=== PATIENT | male | born 1940 | race Caucasian/White ===

== ENCOUNTER 2020-10-21 05:30 | Inpatient (IN) | payer OTHER, MEDICARE ==
[2020-10-19 15:18] VITALS: BMI 21.9
[2020-10-21] MEDS ORDERED: ROCURONIUM BROMIDE 50 MG/5 ML SYRINGE ONE (14:04)
[2020-10-21] MEDS ORDERED: PROPOFOL 20 ML ONE (14:04)
[2020-10-21] MEDS ORDERED: MIDAZOLAM HCL 2 MG/2 ML SINGLE DOSE VIAL ONE (14:05)
[2020-10-21] MEDS ORDERED: LIDOCAINE HCL/PF 2% SDV 5ML VIAL ONE (14:58)
[2020-10-21] MEDS ORDERED: BACITRACIN 50,000 UNITS VIAL NR ONE (15:30)
[2020-10-21] MEDS ORDERED: ceFAZolin SODIUM 1 GM VIAL ONE (15:36)
[2020-10-21] MEDS ORDERED: EPHEDRINE SULFATE/0.9% NACL/PF 50 MG/10 ML SYRINGE NR ONE (15:37)
[2020-10-21] MEDS ORDERED: ceFAZolin 2 GRAM PREMIX BAG IVPB ONE (15:40)
[2020-10-21] MEDS ORDERED: BUPIVACAINE HCL/PF 0.5% (5MG/ML) 10 ML VIAL IJ ONE (15:55)
[2020-10-21] MEDS ORDERED: GLYCOPYRROLATE 0.2 MG/1 ML VIAL ONE (16:31)
[2020-10-21] MEDS ORDERED: NEOSTIGMINE METHYLSULFATE 0.5 MG/ML - 10 ML MDV ONE (16:31)
[2020-10-21] MEDS ORDERED: BACITRACIN 15 GM TUBE TOPICAL OINTMENT ONE (16:46)
[2020-10-21] MEDS ORDERED: ACETAMINOPHEN 325 MG TABLET (FP) PO PRN (17:23)
[2020-10-21] MEDS ORDERED: ALENDRONATE SODIUM 70 MG PO SCH (17:30)
[2020-10-21] MEDS ORDERED: oxyCODONE HCL 5 MG TABLET PO PRN (17:43)
[2020-10-21] MEDS ORDERED: ONDANSETRON 4 MG/2 ML VIAL IVPUSH PRN (17:43)
[2020-10-21] MEDS: LACTATED RINGERS SOLUTION 1,000 ML IV SCH (20:00)
[2020-10-21] MEDS ORDERED: CALCIUM ANTACID PO SCH (22:00)
[2020-10-21] MEDS: ATORVASTATIN CA 10 MG TABLET (FP) PO SCH (22:57)
[2020-10-21] MEDS: CALCIUM CARBONATE 650 MG TABLET PO SCH (22:57)
[2020-10-21] MEDS: ASCORBIC ACID 500 MG TABLET (FP) PO SCH (22:57)
[2020-10-21] MEDS: traZODone HCL 50 MG TABLET (FP) PO SCH (22:57)
[2020-10-21] MEDS: HEPARIN NA (PORCINE) 5,000 UNITS/ML 1ML VIAL SQ SCH (22:57)
[2020-10-22] MEDS ORDERED: CEFAZOLIN 1 GM/D5W 1 GM/50 ML BAG IVPB SCH (01:00)
[2020-10-22] MEDS ORDERED: ceFAZolin SODIUM 1 GM VIAL ONE ×4 (01:46→18:31)
[2020-10-22] MEDS ORDERED: DEXTROSE 5%-WATER - 50 ML IVPB ONE ×4 (01:47→18:31)
[2020-10-22] MEDS: CEFAZOLIN 1 GM in DEXTROSE 5%-WATER - 1 GM/50 ML IVPB IVPB SCH ×3 (02:20→18:39)
[2020-10-22 07:55] LABS: HEMATOCRIT 30.7 % (35.4-49); HEMOGLOBIN 10.2 GM/dL (11.7-16.9); MCH 29.8 pg (25.7-33.7); MCHC 33.4 g/dl (32.0-35.9); MEAN CELL VOLUME 89.3 fl (80-96); MEAN PLT VOLUME 7.7 fl (7.5-11.1); PLATELET COUNT 227 K/MM3 (134-434); RBC 3.44 M/mm3 (4.00-5.60); RDW 15.4 % (11.9-15.9)
[2020-10-22 08:04] LABS: POTASSIUM 4.5 mmol/L (3.5-5.1)
[2020-10-22 08:12] LABS: CALCIUM 8.5 mg/dL (8.5-10.1)
[2020-10-22 08:13] LABS: BLOOD UREA NITROGEN 32.8 mg/dL (7-18)
[2020-10-22 08:16] LABS: CREATININE 1.5 mg/dL (0.55-1.3)
[2020-10-22] MEDS: FERROUS SO4 325 MG TABLET (FP) PO SCH (09:06)
[2020-10-22] MEDS ORDERED: PT OWN MED DRAWER 7, Y5N ONE (09:45)
[2020-10-22] MEDS: HEPARIN NA (PORCINE) 5,000 UNITS/ML 1ML VIAL SQ SCH ×2 (10:39→21:22)
[2020-10-22] MEDS: GABAPENTIN 400 MG CAPSULE PO SCH (10:40)
[2020-10-22] MEDS: ASCORBIC ACID 500 MG TABLET (FP) PO SCH ×2 (10:41→21:21)
[2020-10-22] MEDS: amLODIPine BESYLATE 10 MG TABLET (FP) PO SCH (10:41)
[2020-10-22] MEDS: CALCIUM CARBONATE 650 MG TABLET PO SCH ×2 (10:41→22:02)
[2020-10-22] MEDS: SERTRALINE HCL 25 MG TABLET (FP) PO SCH (10:42)
[2020-10-22] MEDS: CYANOCOBALAMIN 1,000 MCG TABLET (FP) PO SCH (10:43)
[2020-10-22] MEDS: CHOLECALCIFEROL (VIT D3) 1,000 UNIT (25 MCG) TABLET PO SCH (10:44)
[2020-10-22] MEDS: LACTATED RINGERS SOLUTION 1,000 ML IV SCH (18:40)
[2020-10-22] MEDS: OCUVITE WITH LUTEIN PO SCH (19:27)
[2020-10-22] MEDS: ATORVASTATIN CA 10 MG TABLET (FP) PO SCH (21:21)
[2020-10-22] MEDS: traZODone HCL 50 MG TABLET (FP) PO SCH (21:21)
[2020-10-22] MEDS ORDERED: DOCUSATE SODIUM 100 MG CAPSULE (FP) PO ONE (21:36)
[2020-10-22] MEDS ORDERED: POLYETHYLENE GLYCOL 3350 119 GM BTL PO ONE (21:37)
[2020-10-23] MEDS: LACTATED RINGERS SOLUTION 1,000 ML IV SCH ×3 (01:59→22:11)
[2020-10-23 08:50] LABS: BASO % 0.6 % (0-2.0); EOS % 2.3 % (0-4.5); HEMATOCRIT 31.9 % (35.4-49); HEMOGLOBIN 10.7 GM/dL (11.7-16.9); LYMPH % 22.5 % (8-40); MCH 29.7 pg (25.7-33.7); MCHC 33.6 g/dl (32.0-35.9); MEAN CELL VOLUME 88.4 fl (80-96); MEAN PLT VOLUME 7.8 fl (7.5-11.1); MONO % 7.1 % (3.8-10.2); NEUT % 67.5 % (42.8-82.8); PLATELET COUNT 207 K/MM3 (134-434); RDW 15.1 % (11.9-15.9); WHITE BLOOD COUNT 5.3 K/mm3 (4.0-10.0)
[2020-10-23 09:19] LABS: CHLORIDE 107 mmol/L (98-107); POTASSIUM 4.2 mmol/L (3.5-5.1); SODIUM 143 mmol/L (136-145)
[2020-10-23 09:39] LABS: BILIRUBIN,TOTAL 0.4 mg/dL (0.2-1); TOT PROT 6.5 g/dl (6.4-8.2)
[2020-10-23] MEDS: SERTRALINE HCL 25 MG TABLET (FP) PO SCH (09:39)
[2020-10-23 09:40] LABS: ALK PHOS 78 U/L (45-117)
[2020-10-23] MEDS: CYANOCOBALAMIN 1,000 MCG TABLET (FP) PO SCH (09:40)
[2020-10-23] MEDS: amLODIPine BESYLATE 10 MG TABLET (FP) PO SCH (09:40)
[2020-10-23] MEDS: CHOLECALCIFEROL (VIT D3) 1,000 UNIT (25 MCG) TABLET PO SCH (09:41)
[2020-10-23] MEDS: GABAPENTIN 400 MG CAPSULE PO SCH (09:41)
[2020-10-23] MEDS: FERROUS SO4 325 MG TABLET (FP) PO SCH (09:41)
[2020-10-23 09:42] LABS: SGOT/AST 12 U/L (15-37)
[2020-10-23] MEDS: HEPARIN NA (PORCINE) 5,000 UNITS/ML 1ML VIAL SQ SCH ×2 (09:42→22:18)
[2020-10-23] MEDS: CALCIUM CARBONATE 650 MG TABLET PO SCH ×2 (09:42→22:19)
[2020-10-23 09:43] LABS: ALBUMIN 2.4 g/dl (3.4-5.0); BLOOD UREA NITROGEN 25.4 mg/dL (7-18); CREATININE 1.3 mg/dL (0.55-1.3)
[2020-10-23 09:44] LABS: GLUCOSE,RANDOM 79 mg/dL (74-106)
[2020-10-23] MEDS: ASCORBIC ACID 500 MG TABLET (FP) PO SCH ×2 (09:47→22:18)
[2020-10-23 12:31] LABS: ANION GAP 7 MMOL/L (8-16); CO2 29 mmol/L (21-32)
[2020-10-23 12:43] LABS: SGPT/ALT < 6 U/L (13-61)
[2020-10-23 19:03] LABS: EPI CELLS 24 /uL (0-25.1); HYALINE CASTS 0 /uL (0-3.1); PH,URINE 7.5 (5.0-8.0); URINE APPEARANCE CLEAR; URINE BACTERIA 27 /uL (0-1359); URINE BILIRUBIN NEGATIVE (NEGATIVE); URINE COLOR YELLOW; URINE GLUCOSE (UA) NEGATIVE (NEGATIVE); URINE KETONE NEGATIVE (NEGATIVE); URINE LEUK ESTERASE 3+ (NEGATIVE); URINE NITRITE NEGATIVE (NEGATIVE); URINE PROTEIN TRACE (NEGATIVE); URINE RBC 23 /uL (0-23.9); URINE UROBILINOGEN 0.2 mg/dL (0.2-1.0); URINE WBC 60 /uL (0-25.8)
[2020-10-23] MEDS: ATORVASTATIN CA 10 MG TABLET (FP) PO SCH (22:18)
[2020-10-23] MEDS: traZODone HCL 50 MG TABLET (FP) PO SCH (22:19)
[2020-10-24] MEDS ORDERED: PT OWN MED DRAWER 7, Y5N ONE (09:30)
[2020-10-24] MEDS: SERTRALINE HCL 25 MG TABLET (FP) PO SCH (09:49)
[2020-10-24] MEDS: CALCIUM CARBONATE 650 MG TABLET PO SCH ×2 (09:49→21:23)
[2020-10-24] MEDS: FERROUS SO4 325 MG TABLET (FP) PO SCH (09:49)
[2020-10-24] MEDS: ASCORBIC ACID 500 MG TABLET (FP) PO SCH ×2 (09:49→21:23)
[2020-10-24] MEDS: CYANOCOBALAMIN 1,000 MCG TABLET (FP) PO SCH (09:49)
[2020-10-24] MEDS: GABAPENTIN 400 MG CAPSULE PO SCH (09:49)
[2020-10-24] MEDS: CHOLECALCIFEROL (VIT D3) 1,000 UNIT (25 MCG) TABLET PO SCH (09:50)
[2020-10-24] MEDS: amLODIPine BESYLATE 10 MG TABLET (FP) PO SCH (09:50)
[2020-10-24] MEDS: HEPARIN NA (PORCINE) 5,000 UNITS/ML 1ML VIAL SQ SCH ×2 (09:51→21:23)
[2020-10-24] MEDS ORDERED: GLYCERIN 1 RECTAL SUPPOSITORY, ADULT RC ONE (10:57)
[2020-10-24 12:08] LABS: BASO % 0.6 % (0-2.0); EOS % 2.6 % (0-4.5); HEMATOCRIT 32.7 % (35.4-49); LYMPH % 18.9 % (8-40); MCH 29.6 pg (25.7-33.7); MCHC 33.5 g/dl (32.0-35.9); MEAN CELL VOLUME 88.4 fl (80-96); MEAN PLT VOLUME 7.3 fl (7.5-11.1); MONO % 7.3 % (3.8-10.2); NEUT % 70.6 % (42.8-82.8); PLATELET COUNT 221 K/MM3 (134-434); WHITE BLOOD COUNT 5.4 K/mm3 (4.0-10.0)
[2020-10-24 12:25] LABS: CHLORIDE 102 mmol/L (98-107); POTASSIUM 4.5 mmol/L (3.5-5.1); SODIUM 138 mmol/L (136-145)
[2020-10-24 12:27] LABS: CALCIUM 8.5 mg/dL (8.5-10.1)
[2020-10-24 12:28] LABS: ALBUMIN 2.4 g/dl (3.4-5.0); ANION GAP 5 MMOL/L (8-16); BLOOD UREA NITROGEN 25.6 mg/dL (7-18); CO2 30 mmol/L (21-32); GLUCOSE,RANDOM 100 mg/dL (74-106); MAGNESIUM 2.1 mg/dL (1.8-2.4)
[2020-10-24 12:31] LABS: CREATININE 1.4 mg/dL (0.55-1.3); PHOSPHOROUS 3.6 mg/dL (2.5-4.9); SGOT/AST 13 U/L (15-37); SGPT/ALT < 6 U/L (13-61)
[2020-10-24 12:32] LABS: BILIRUBIN,TOTAL 0.3 mg/dL (0.2-1); TOT PROT 6.8 g/dl (6.4-8.2)
[2020-10-24 12:34] LABS: ALK PHOS 76 U/L (45-117)
[2020-10-24] MEDS: traZODone HCL 50 MG TABLET (FP) PO SCH (21:23)
[2020-10-24] MEDS: ATORVASTATIN CA 10 MG TABLET (FP) PO SCH (21:23)
[2020-10-24] MEDS: DOCUSATE SODIUM 100 MG CAPSULE (FP) PO SCH (21:24)
[2020-10-25 09:04] LABS: BASO % 0.6 % (0-2.0); EOS % 3.5 % (0-4.5); HEMATOCRIT 30.5 % (35.4-49); HEMOGLOBIN 10.3 GM/dL (11.7-16.9); LYMPH % 24.6 % (8-40); MCH 29.9 pg (25.7-33.7); MCHC 33.7 g/dl (32.0-35.9); MEAN CELL VOLUME 88.6 fl (80-96); MEAN PLT VOLUME 7.9 fl (7.5-11.1); NEUT % 64.3 % (42.8-82.8); PLATELET COUNT 223 K/MM3 (134-434); RBC 3.44 M/mm3 (4.00-5.60); WHITE BLOOD COUNT 5.7 K/mm3 (4.0-10.0)
[2020-10-25 09:23] LABS: CHLORIDE 104 mmol/L (98-107); POTASSIUM 4.5 mmol/L (3.5-5.1); SODIUM 140 mmol/L (136-145)
[2020-10-25 09:27] LABS: CALCIUM 8.6 mg/dL (8.5-10.1)
[2020-10-25 09:28] LABS: ALBUMIN 2.4 g/dl (3.4-5.0); ANION GAP 7 MMOL/L (8-16); BLOOD UREA NITROGEN 32.5 mg/dL (7-18); CO2 30 mmol/L (21-32)
[2020-10-25 09:29] LABS: GLUCOSE,RANDOM 79 mg/dL (74-106); MAGNESIUM 2.2 mg/dL (1.8-2.4)
[2020-10-25 09:31] LABS: CREATININE 1.5 mg/dL (0.55-1.3); PHOSPHOROUS 3.5 mg/dL (2.5-4.9); SGOT/AST 14 U/L (15-37)
[2020-10-25 09:33] LABS: BILIRUBIN,TOTAL 0.4 mg/dL (0.2-1); TOT PROT 6.8 g/dl (6.4-8.2)
[2020-10-25 09:34] LABS: ALK PHOS 75 U/L (45-117)
[2020-10-25 09:36] LABS: SGPT/ALT < 6 U/L (13-61)
[2020-10-25] MEDS ORDERED: PT OWN MED DRAWER 7, Y5N ONE (10:36)
[2020-10-25] MEDS: SERTRALINE HCL 25 MG TABLET (FP) PO SCH (10:41)
[2020-10-25] MEDS: FERROUS SO4 325 MG TABLET (FP) PO SCH (10:42)
[2020-10-25] MEDS: CYANOCOBALAMIN 1,000 MCG TABLET (FP) PO SCH (10:42)
[2020-10-25] MEDS: ASCORBIC ACID 500 MG TABLET (FP) PO SCH ×2 (10:42→21:36)
[2020-10-25] MEDS: amLODIPine BESYLATE 10 MG TABLET (FP) PO SCH (10:42)
[2020-10-25] MEDS: CHOLECALCIFEROL (VIT D3) 1,000 UNIT (25 MCG) TABLET PO SCH (10:42)
[2020-10-25] MEDS: GABAPENTIN 400 MG CAPSULE PO SCH (10:42)
[2020-10-25] MEDS: CALCIUM CARBONATE 650 MG TABLET PO SCH ×2 (10:43→21:41)
[2020-10-25] MEDS: HEPARIN NA (PORCINE) 5,000 UNITS/ML 1ML VIAL SQ SCH ×2 (10:44→21:37)
[2020-10-25] MEDS: traZODone HCL 50 MG TABLET (FP) PO SCH (21:35)
[2020-10-25] MEDS: ATORVASTATIN CA 10 MG TABLET (FP) PO SCH (21:36)
[2020-10-25] MEDS: DOCUSATE SODIUM 100 MG CAPSULE (FP) PO SCH (21:36)
[2020-10-26] MEDS: CALCIUM CARBONATE 650 MG TABLET PO SCH (09:35)
[2020-10-26] MEDS: ASCORBIC ACID 500 MG TABLET (FP) PO SCH (09:35)
[2020-10-26] MEDS: CHOLECALCIFEROL (VIT D3) 1,000 UNIT (25 MCG) TABLET PO SCH (09:35)
[2020-10-26] MEDS: SERTRALINE HCL 25 MG TABLET (FP) PO SCH (09:35)
[2020-10-26] MEDS: amLODIPine BESYLATE 10 MG TABLET (FP) PO SCH (09:36)
[2020-10-26] MEDS: GABAPENTIN 400 MG CAPSULE PO SCH (09:36)
[2020-10-26] MEDS: HEPARIN NA (PORCINE) 5,000 UNITS/ML 1ML VIAL SQ SCH (09:36)
[2020-10-26] MEDS: FERROUS SO4 325 MG TABLET (FP) PO SCH (09:36)
[2020-10-26] MEDS: CYANOCOBALAMIN 1,000 MCG TABLET (FP) PO SCH (09:36)
[2020-10-26 09:39] VITALS: TEMP 98
[2020-10-26 13:27] VITALS: BP 138/65; PULSE 61
== END 2020-10-26 14:30 | DRG 574 ==
LOC: JASU-SURG 05:30 → SUATTDRO 05:30 → J2C 17:24 → JASU-SURG 17:25 → J8W 20:18
PROVIDERS: ADMIT Plastic Surgery; ATTEND Internal Medicine
PROC: 0JX90ZC Transfer Buttock Subcutaneous Tissue and Fascia with Skin, Subcutaneous Tissue and Fascia, Open Approach (ICD-10-PCS; 2020-10-21)
PROC: 0QB20ZX Excision of Right Pelvic Bone, Open Approach, Diagnostic (ICD-10-PCS; 2020-10-21)
PROC: 0KBN0ZZ Excision of Right Hip Muscle, Open Approach (ICD-10-PCS; principal; 2020-10-21 14:00)
DX: L89.154 Pressure ulcer of sacral region, stage 4 (principal); N13.30 Unspecified hydronephrosis; N17.9 Acute kidney failure, unspecified; G35 Multiple sclerosis; E78.5 Hyperlipidemia, unspecified; I12.9 Hypertensive chronic kidney disease with stage 1 through stage 4 chronic kidney disease, or unspecified chronic kidney disease; N18.9 Chronic kidney disease, unspecified; D64.9 Anemia, unspecified; Z93.6 Other artificial openings of urinary tract status
CPT/HCPCS: 36415; 76775-TC; 80048; 80053; 81003; 83735; 84100; 85025; 85027; 88304-TC; 88305-TC; 88311-TC; 94760; C9803; J1644; U0003; U0005

== ENCOUNTER 2022-09-26 16:34 | Inpatient (IN) | payer OTHER, MEDICARE ==
[2022-09-26 18:27] LABS: BASO % 0.3 % (0-2.0); EOS % 1.4 % (0-4.5); HEMATOCRIT 34.1 % (35.4-49); HEMOGLOBIN 10.9 GM/dL (11.7-16.9); LYMPH % 12.4 % (8-40); MCH 26.2 pg (25.7-33.7); MCHC 32.1 g/dl (32.0-35.9); MEAN CELL VOLUME 81.6 fl (80-96); MEAN PLT VOLUME 6.5 fl (7.5-11.1); MONO % 6.8 % (3.8-10.2); NEUT % 79.1 % (42.8-82.8); PLATELET COUNT 388 10^3/uL (134-434); RBC 4.18 M/mm3 (4.00-5.60); RDW 15.6 % (11.9-15.9); WHITE BLOOD COUNT 10.1 K/mm3 (4.0-10.0)
[2022-09-26 18:33] LABS: INR 1.18 (0.83-1.09); PROTHROMBIN TIME (PATIENT) 13.7 SEC (9.7-13.0)
[2022-09-26 19:13] LABS: CALCIUM 8.5 mg/dL (8.5-10.1)
[2022-09-26 19:14] LABS: ALBUMIN 2.1 g/dl (3.4-5.0); BLOOD UREA NITROGEN 28.4 mg/dL (7-18)
[2022-09-26 19:19] LABS: BILIRUBIN,TOTAL 0.3 mg/dL (0.2-1); TOT PROT 7.3 g/dl (6.4-8.2)
[2022-09-26] MEDS ORDERED: VANCOMYCIN 1 GM in D5W (PRE-DOCKED) 1,000 MG/250 ML IVPB ONE (19:51)
[2022-09-26] MEDS ORDERED: PIPERACILLIN/TAZOB 4.5 GM 4.5 GM in DEXTROSE 5%-WATER 100 ML IVPB ONE (19:51)
[2022-09-26] MEDS ORDERED: PIPERACILLIN/TAZOB 4.5 GM 4.5 GM/100 ML BAG IVPB ONE (19:53)
[2022-09-26 20:37] LABS: EPI CELLS 1 /uL (0-25.1); HYALINE CASTS 2 /uL (0-3.1); URINE APPEARANCE CLOUDY; URINE BACTERIA 8451 /uL (0-1359); URINE BILIRUBIN NEGATIVE (NEGATIVE); URINE COLOR YELLOW; URINE GLUCOSE (UA) NEGATIVE (NEGATIVE); URINE KETONE NEGATIVE (NEGATIVE); URINE LEUK ESTERASE 3+ (NEGATIVE); URINE NITRITE POSITIVE (NEGATIVE); URINE PROTEIN 1+ (NEGATIVE); URINE RBC 40 /uL (0-23.9); URINE UROBILINOGEN 0.2 mg/dL (0.2-1.0); URINE WBC 679 /uL (0-25.8)
[2022-09-26] MEDS ORDERED: CALCIUM CARBONATE 650 MG TABLET PO SCH (22:00)
[2022-09-26] MEDS: SODIUM CHLORIDE 1,000 ML IV SCH (22:37)
[2022-09-26] MEDS: traZODone HCL 50 MG TABLET (FP) PO SCH (22:37)
[2022-09-26] MEDS: GABAPENTIN 300 MG CAPSULE PO SCH (22:37)
[2022-09-26] MEDS: ATORVASTATIN CA 10 MG TABLET (FP) PO SCH (22:38)
[2022-09-26] MEDS: SENNOSIDES 8.6MG TABLET (FP) PO SCH (22:38)
[2022-09-26] MEDS ORDERED: VANCOMYCIN 1 GM/200 ML PREMIX BAG (RESTRICTED TO ID ONLY) IVPB ONE (23:15)
[2022-09-26 23:56] VITALS: BMI 19.6
[2022-09-26] MEDS: CALCIUM CARBONATE 650 MG TABLET PO SCH (23:56)
[2022-09-27] MEDS: PIPERACILLIN/TAZOB 3.375 GM 3.375 GM in DEXTROSE 5%-WATER - 50 ML IVPB SCH ×2 (01:27→09:51)
[2022-09-27] MEDS: SERTRALINE HCL 25 MG TABLET (FP) PO SCH (09:50)
[2022-09-27] MEDS ORDERED: VANCOMYCIN 1 GM/200 ML PREMIX BAG (RESTRICTED TO ID ONLY) IVPB SCH (10:00)
[2022-09-27] MEDS ORDERED: amLODIPine BESYLATE 5 MG TABLET (FP) PO SCH (10:00)
[2022-09-27] MEDS ORDERED: CYANOCOBALAMIN 1,000 MCG TABLET (FP) PO SCH (10:00)
[2022-09-27] MEDS ORDERED: VANCOMYCIN 1 GM in D5W (PRE-DOCKED) 1,000 MG/250 ML IVPB SCH (10:00)
[2022-09-27] MEDS: CALCIUM CARBONATE 650 MG TABLET PO SCH ×2 (10:03→22:30)
[2022-09-27] MEDS: POLYETHYLENE GLYCOL (HEALTHYLAX) 3350 17 GM PACKET PO SCH (10:03)
[2022-09-27] MEDS: GABAPENTIN 300 MG CAPSULE PO SCH ×2 (10:03→22:30)
[2022-09-27] MEDS: ASPIRIN 81 MG CHEWABLE TABLETS PO SCH (10:03)
[2022-09-27] MEDS: FERROUS SO4 325 MG TABLET (FP) PO SCH (10:03)
[2022-09-27] MEDS: FOLIC ACID 1 MG TABLET (FP) PO SCH (10:03)
[2022-09-27] MEDS: amLODIPine BESYLATE 5 MG TABLET (FP) PO SCH (10:04)
[2022-09-27] MEDS: CHOLECALCIFEROL (VIT D3) 1,000 UNIT (25 MCG) TABLET PO SCH (10:04)
[2022-09-27] MEDS: CYANOCOBALAMIN 1,000 MCG TABLET (FP) PO SCH (10:04)
[2022-09-27] MEDS: MULTIVITAMINS (DAILY MVI) TABLET (FP) PO SCH (10:04)
[2022-09-27] MEDS: ZINC SULFATE 220 MG CAPSULE (FP) PO SCH (10:04)
[2022-09-27 10:18] LABS: BASO % 0.6 % (0-2.0); EOS % 1.8 % (0-4.5); HEMATOCRIT 29.3 % (35.4-49); HEMOGLOBIN 9.4 GM/dL (11.7-16.9); LYMPH % 12.7 % (8-40); MCH 26.7 pg (25.7-33.7); MCHC 32.1 g/dl (32.0-35.9); MEAN CELL VOLUME 83.2 fl (80-96); MEAN PLT VOLUME 6.4 fl (7.5-11.1); MONO % 5.2 % (3.8-10.2); NEUT % 79.7 % (42.8-82.8); PLATELET COUNT 354 10^3/uL (134-434); RBC 3.52 M/mm3 (4.00-5.60); WHITE BLOOD COUNT 6.8 K/mm3 (4.0-10.0)
[2022-09-27 10:22] LABS: INR 1.31 (0.83-1.09); PROTHROMBIN TIME (PATIENT) 15.2 SEC (9.7-13.0)
[2022-09-27 10:45] LABS: CALCIUM 7.7 mg/dL (8.5-10.1)
[2022-09-27 10:46] LABS: ALBUMIN 1.7 g/dl (3.4-5.0); BLOOD UREA NITROGEN 24.4 mg/dL (7-18); MAGNESIUM 2.2 mg/dL (1.8-2.4)
[2022-09-27 10:49] LABS: PHOSPHOROUS 3.3 mg/dL (2.5-4.9)
[2022-09-27 10:50] LABS: BILIRUBIN,TOTAL 0.3 mg/dL (0.2-1); TOT PROT 6.1 g/dl (6.4-8.2)
[2022-09-27] MEDS: ENOXAPARIN NA (PORCINE) 40 MG/0.4 ML DISP.SYRIN SQ SCH (18:49)
[2022-09-27] MEDS: PIPERACILLIN/TAZOB 4.5 GM 4.5 GM in DEXTROSE 5%-WATER 100 ML IVPB SCH (18:50)
[2022-09-27] MEDS: VITAMIN A 10,000 UNITS (3000 MCG) CAPSULE PO SCH (18:51)
[2022-09-27] MEDS: SODIUM CHLORIDE 1,000 ML IV SCH ×2 (18:51→23:16)
[2022-09-27] MEDS: AMINO ACIDS/PROTEIN HYDROLYS 30 ML LIQUID.PKT PO SCH (18:51)
[2022-09-27] MEDS ORDERED: ASCORBIC ACID 500 MG TABLET (FP) PO SCH (22:15)
[2022-09-27] MEDS: traZODone HCL 50 MG TABLET (FP) PO SCH (22:30)
[2022-09-27] MEDS: ATORVASTATIN CA 10 MG TABLET (FP) PO SCH (22:30)
[2022-09-27] MEDS: SENNOSIDES 8.6MG TABLET (FP) PO SCH (22:30)
[2022-09-27] MEDS: ASCORBIC ACID 500 MG TABLET (FP) PO SCH ×2 (23:19→23:21)
[2022-09-28] MEDS ORDERED: PIPERACILLIN/TAZOB 3.375 GM 3.375 GM in DEXTROSE 5%-WATER - 50 ML IVPB SCH (02:00)
[2022-09-28] MEDS: PIPERACILLIN/TAZOB 4.5 GM 4.5 GM in DEXTROSE 5%-WATER 100 ML IVPB SCH ×3 (02:06→17:19)
[2022-09-28] MEDS: SODIUM CHLORIDE 1,000 ML IV SCH (07:02)
[2022-09-28] MEDS: CALCIUM CARBONATE 650 MG TABLET PO SCH ×2 (09:32→21:53)
[2022-09-28] MEDS: ASPIRIN 81 MG CHEWABLE TABLETS PO SCH (09:32)
[2022-09-28] MEDS: CHOLECALCIFEROL (VIT D3) 1,000 UNIT (25 MCG) TABLET PO SCH (09:32)
[2022-09-28] MEDS: MULTIVITAMINS (DAILY MVI) TABLET (FP) PO SCH (09:32)
[2022-09-28] MEDS: ZINC SULFATE 220 MG CAPSULE (FP) PO SCH (09:32)
[2022-09-28] MEDS: AMINO ACIDS/PROTEIN HYDROLYS 30 ML LIQUID.PKT PO SCH ×3 (09:32→17:41)
[2022-09-28] MEDS: VITAMIN A 10,000 UNITS (3000 MCG) CAPSULE PO SCH (09:32)
[2022-09-28] MEDS: SERTRALINE HCL 25 MG TABLET (FP) PO SCH (09:32)
[2022-09-28] MEDS: CYANOCOBALAMIN 1,000 MCG TABLET (FP) PO SCH (09:32)
[2022-09-28] MEDS: ASCORBIC ACID 500 MG TABLET (FP) PO SCH ×2 (09:32→21:52)
[2022-09-28] MEDS: FERROUS SO4 325 MG TABLET (FP) PO SCH (09:33)
[2022-09-28] MEDS: GABAPENTIN 300 MG CAPSULE PO SCH ×2 (09:33→21:52)
[2022-09-28] MEDS: FOLIC ACID 1 MG TABLET (FP) PO SCH (09:33)
[2022-09-28] MEDS: amLODIPine BESYLATE 5 MG TABLET (FP) PO SCH (09:33)
[2022-09-28] MEDS: POLYETHYLENE GLYCOL (HEALTHYLAX) 3350 17 GM PACKET PO SCH ×2 (09:33→09:48)
[2022-09-28] MEDS: ENOXAPARIN NA (PORCINE) 40 MG/0.4 ML DISP.SYRIN SQ SCH (09:34)
[2022-09-28] MEDS ORDERED: DEXMEDETOMIDINE HCL 200 MCG/2 ML IVPB ONE (13:32)
[2022-09-28] MEDS ORDERED: PROPOFOL 20 ML ONE (13:54)
[2022-09-28] MEDS ORDERED: SODIUM CHLORIDE 1,000 ML IV SCH (15:34)
[2022-09-28] MEDS: SENNOSIDES 8.6MG TABLET (FP) PO SCH (21:52)
[2022-09-28] MEDS: traZODone HCL 50 MG TABLET (FP) PO SCH (21:53)
[2022-09-28] MEDS: ATORVASTATIN CA 10 MG TABLET (FP) PO SCH (21:53)
[2022-09-29] MEDS: PIPERACILLIN/TAZOB 4.5 GM 4.5 GM in DEXTROSE 5%-WATER 100 ML IVPB SCH ×4 (01:21→18:20)
[2022-09-29] MEDS: POLYETHYLENE GLYCOL (HEALTHYLAX) 3350 17 GM PACKET PO SCH (10:07)
[2022-09-29] MEDS: AMINO ACIDS/PROTEIN HYDROLYS 30 ML LIQUID.PKT PO SCH ×4 (10:07→18:21)
[2022-09-29] MEDS: ZINC SULFATE 220 MG CAPSULE (FP) PO SCH (10:08)
[2022-09-29] MEDS: CYANOCOBALAMIN 1,000 MCG TABLET (FP) PO SCH (10:08)
[2022-09-29] MEDS: GABAPENTIN 300 MG CAPSULE PO SCH ×2 (10:08→21:37)
[2022-09-29] MEDS: ASCORBIC ACID 500 MG TABLET (FP) PO SCH ×2 (10:08→21:37)
[2022-09-29] MEDS: FERROUS SO4 325 MG TABLET (FP) PO SCH (10:08)
[2022-09-29] MEDS: CALCIUM CARBONATE 650 MG TABLET PO SCH ×2 (10:09→21:37)
[2022-09-29] MEDS: MULTIVITAMINS (DAILY MVI) TABLET (FP) PO SCH (10:09)
[2022-09-29] MEDS: SERTRALINE HCL 25 MG TABLET (FP) PO SCH (10:09)
[2022-09-29] MEDS: CHOLECALCIFEROL (VIT D3) 1,000 UNIT (25 MCG) TABLET PO SCH (10:09)
[2022-09-29] MEDS: FOLIC ACID 1 MG TABLET (FP) PO SCH (10:09)
[2022-09-29] MEDS: VITAMIN A 10,000 UNITS (3000 MCG) CAPSULE PO SCH (10:10)
[2022-09-29] MEDS: amLODIPine BESYLATE 5 MG TABLET (FP) PO SCH (10:20)
[2022-09-29] MEDS: traZODone HCL 50 MG TABLET (FP) PO SCH (21:37)
[2022-09-29] MEDS: ATORVASTATIN CA 10 MG TABLET (FP) PO SCH (21:38)
[2022-09-29] MEDS: SENNOSIDES 8.6MG TABLET (FP) PO SCH (21:38)
[2022-09-30] MEDS: PIPERACILLIN/TAZOB 4.5 GM 4.5 GM in DEXTROSE 5%-WATER 100 ML IVPB SCH ×3 (01:18→18:08)
[2022-09-30 08:48] LABS: HEMATOCRIT 25.9 % (35.4-49); HEMOGLOBIN 8.4 GM/dL (11.7-16.9); MCH 26.6 pg (25.7-33.7); MCHC 32.4 g/dl (32.0-35.9); MEAN CELL VOLUME 82.2 fl (80-96); MEAN PLT VOLUME 6.5 fl (7.5-11.1); PLATELET COUNT 283 10^3/uL (134-434); RBC 3.15 M/mm3 (4.00-5.60); RDW 15.9 % (11.9-15.9); WHITE BLOOD COUNT 6.6 K/mm3 (4.0-10.0)
[2022-09-30 09:11] LABS: BLOOD UREA NITROGEN 28.3 mg/dL (7-18); CALCIUM 8.4 mg/dL (8.5-10.1); MAGNESIUM 1.9 mg/dL (1.8-2.4)
[2022-09-30 09:12] LABS: ALBUMIN 1.6 g/dl (3.4-5.0)
[2022-09-30 09:14] LABS: PHOSPHOROUS 4.1 mg/dL (2.5-4.9)
[2022-09-30 09:16] LABS: BILIRUBIN,TOTAL 0.4 mg/dL (0.2-1); TOT PROT 5.6 g/dl (6.4-8.2)
[2022-09-30] MEDS: GABAPENTIN 300 MG CAPSULE PO SCH ×2 (09:37→22:07)
[2022-09-30] MEDS: CHOLECALCIFEROL (VIT D3) 1,000 UNIT (25 MCG) TABLET PO SCH (09:37)
[2022-09-30] MEDS: CYANOCOBALAMIN 1,000 MCG TABLET (FP) PO SCH (09:37)
[2022-09-30] MEDS: MULTIVITAMINS (DAILY MVI) TABLET (FP) PO SCH (09:37)
[2022-09-30] MEDS: ZINC SULFATE 220 MG CAPSULE (FP) PO SCH (09:37)
[2022-09-30] MEDS: ASCORBIC ACID 500 MG TABLET (FP) PO SCH ×2 (09:37→22:07)
[2022-09-30] MEDS: SERTRALINE HCL 25 MG TABLET (FP) PO SCH (09:37)
[2022-09-30] MEDS: FOLIC ACID 1 MG TABLET (FP) PO SCH (09:37)
[2022-09-30] MEDS: POLYETHYLENE GLYCOL (HEALTHYLAX) 3350 17 GM PACKET PO SCH (09:37)
[2022-09-30] MEDS: AMINO ACIDS/PROTEIN HYDROLYS 30 ML LIQUID.PKT PO SCH ×3 (09:37→19:07)
[2022-09-30] MEDS: CALCIUM CARBONATE 650 MG TABLET PO SCH ×2 (09:37→22:07)
[2022-09-30] MEDS: amLODIPine BESYLATE 5 MG TABLET (FP) PO SCH (09:37)
[2022-09-30] MEDS: FERROUS SO4 325 MG TABLET (FP) PO SCH (09:37)
[2022-09-30] MEDS: VITAMIN A 10,000 UNITS (3000 MCG) CAPSULE PO SCH (10:08)
[2022-09-30] MEDS: SENNOSIDES 8.6MG TABLET (FP) PO SCH (22:07)
[2022-09-30] MEDS: ATORVASTATIN CA 10 MG TABLET (FP) PO SCH (22:07)
[2022-09-30] MEDS: traZODone HCL 50 MG TABLET (FP) PO SCH (22:08)
[2022-10-01] MEDS: PIPERACILLIN/TAZOB 4.5 GM 4.5 GM in DEXTROSE 5%-WATER 100 ML IVPB SCH ×3 (02:04→18:21)
[2022-10-01] MEDS: ZINC SULFATE 220 MG CAPSULE (FP) PO SCH (09:16)
[2022-10-01] MEDS: SERTRALINE HCL 25 MG TABLET (FP) PO SCH (09:16)
[2022-10-01] MEDS: ASCORBIC ACID 500 MG TABLET (FP) PO SCH ×2 (09:16→22:13)
[2022-10-01] MEDS: CYANOCOBALAMIN 1,000 MCG TABLET (FP) PO SCH (09:16)
[2022-10-01] MEDS: FERROUS SO4 325 MG TABLET (FP) PO SCH (09:16)
[2022-10-01] MEDS: amLODIPine BESYLATE 5 MG TABLET (FP) PO SCH (09:16)
[2022-10-01] MEDS: CHOLECALCIFEROL (VIT D3) 1,000 UNIT (25 MCG) TABLET PO SCH (09:16)
[2022-10-01] MEDS: MULTIVITAMINS (DAILY MVI) TABLET (FP) PO SCH (09:16)
[2022-10-01] MEDS: GABAPENTIN 300 MG CAPSULE PO SCH ×2 (09:16→22:14)
[2022-10-01] MEDS: CALCIUM CARBONATE 650 MG TABLET PO SCH ×2 (09:17→22:18)
[2022-10-01] MEDS: VITAMIN A 10,000 UNITS (3000 MCG) CAPSULE PO SCH (09:17)
[2022-10-01] MEDS: AMINO ACIDS/PROTEIN HYDROLYS 30 ML LIQUID.PKT PO SCH ×3 (09:18→17:34)
[2022-10-01] MEDS: POLYETHYLENE GLYCOL (HEALTHYLAX) 3350 17 GM PACKET PO SCH (09:19)
[2022-10-01 09:49] LABS: BASO % 0.6 % (0-2.0); EOS % 4.2 % (0-4.5); HEMATOCRIT 29.3 % (35.4-49); HEMOGLOBIN 9.5 GM/dL (11.7-16.9); LYMPH % 18.7 % (8-40); MCH 26.6 pg (25.7-33.7); MCHC 32.6 g/dl (32.0-35.9); MEAN CELL VOLUME 81.6 fl (80-96); MEAN PLT VOLUME 6.7 fl (7.5-11.1); MONO % 5.9 % (3.8-10.2); NEUT % 70.6 % (42.8-82.8); PLATELET COUNT 329 10^3/uL (134-434); RBC 3.59 M/mm3 (4.00-5.60); RDW 16.3 % (11.9-15.9); WHITE BLOOD COUNT 7.3 K/mm3 (4.0-10.0)
[2022-10-01 09:52] LABS: CALCIUM 8.8 mg/dL (8.5-10.1)
[2022-10-01 09:55] LABS: CREATININE 1.1 mg/dL (0.55-1.3)
[2022-10-01] MEDS: FOLIC ACID 1 MG TABLET (FP) PO SCH (10:17)
[2022-10-01] MEDS: traZODone HCL 50 MG TABLET (FP) PO SCH (22:14)
[2022-10-01] MEDS: ATORVASTATIN CA 10 MG TABLET (FP) PO SCH (22:15)
[2022-10-01] MEDS: SENNOSIDES 8.6MG TABLET (FP) PO SCH (22:15)
[2022-10-02] MEDS: PIPERACILLIN/TAZOB 4.5 GM 4.5 GM in DEXTROSE 5%-WATER 100 ML IVPB SCH ×3 (04:17→18:37)
[2022-10-02] MEDS ORDERED: PATIENT'S OWN MEDICATION (NON-FORMULARY) (Alendronate Sodium [Fosamax] 70 MG Tablet) PO SCH (09:00)
[2022-10-02 10:01] LABS: MCH 26.4 pg (25.7-33.7); MCHC 32.3 g/dl (32.0-35.9); MEAN CELL VOLUME 81.7 fl (80-96); MEAN PLT VOLUME 6.4 fl (7.5-11.1); PLATELET COUNT 334 10^3/uL (134-434); RBC 3.42 M/mm3 (4.00-5.60); RDW 15.8 % (11.9-15.9); WHITE BLOOD COUNT 7.6 K/mm3 (4.0-10.0)
[2022-10-02] MEDS: FOLIC ACID 1 MG TABLET (FP) PO SCH (10:36)
[2022-10-02] MEDS: AMINO ACIDS/PROTEIN HYDROLYS 30 ML LIQUID.PKT PO SCH ×3 (10:36→18:37)
[2022-10-02] MEDS: POLYETHYLENE GLYCOL (HEALTHYLAX) 3350 17 GM PACKET PO SCH (10:36)
[2022-10-02] MEDS: CALCIUM CARBONATE 650 MG TABLET PO SCH ×2 (10:36→22:31)
[2022-10-02] MEDS: ZINC SULFATE 220 MG CAPSULE (FP) PO SCH (10:36)
[2022-10-02] MEDS: ASCORBIC ACID 500 MG TABLET (FP) PO SCH ×2 (10:37→22:31)
[2022-10-02] MEDS: MULTIVITAMINS (DAILY MVI) TABLET (FP) PO SCH (10:37)
[2022-10-02] MEDS: SERTRALINE HCL 25 MG TABLET (FP) PO SCH (10:37)
[2022-10-02] MEDS: GABAPENTIN 300 MG CAPSULE PO SCH ×2 (10:37→22:31)
[2022-10-02] MEDS: CYANOCOBALAMIN 1,000 MCG TABLET (FP) PO SCH (10:37)
[2022-10-02] MEDS: amLODIPine BESYLATE 5 MG TABLET (FP) PO SCH (10:37)
[2022-10-02] MEDS: VITAMIN A 10,000 UNITS (3000 MCG) CAPSULE PO SCH (10:37)
[2022-10-02] MEDS: CHOLECALCIFEROL (VIT D3) 1,000 UNIT (25 MCG) TABLET PO SCH (10:37)
[2022-10-02] MEDS: FERROUS SO4 325 MG TABLET (FP) PO SCH (10:38)
[2022-10-02 10:45] LABS: BLOOD UREA NITROGEN 34.6 mg/dL (7-18); CALCIUM 8.9 mg/dL (8.5-10.1)
[2022-10-02 10:49] LABS: CREATININE 1.3 mg/dL (0.55-1.3)
[2022-10-02] MEDS ORDERED: FLU VACC QS2022-23(6MOS UP)/PF 60 MCG/0.5 ML SYRINGE IM ONE (12:42)
[2022-10-02] MEDS: traZODone HCL 50 MG TABLET (FP) PO SCH (22:31)
[2022-10-02] MEDS: SENNOSIDES 8.6MG TABLET (FP) PO SCH (22:31)
[2022-10-02] MEDS: ATORVASTATIN CA 10 MG TABLET (FP) PO SCH (22:31)
[2022-10-03] MEDS: PIPERACILLIN/TAZOB 4.5 GM 4.5 GM in DEXTROSE 5%-WATER 100 ML IVPB SCH ×3 (02:58→17:00)
[2022-10-03] MEDS: AMINO ACIDS/PROTEIN HYDROLYS 30 ML LIQUID.PKT PO SCH ×3 (08:57→16:59)
[2022-10-03] MEDS: POLYETHYLENE GLYCOL (HEALTHYLAX) 3350 17 GM PACKET PO SCH (09:54)
[2022-10-03] MEDS: MULTIVITAMINS (DAILY MVI) TABLET (FP) PO SCH (09:55)
[2022-10-03] MEDS: ENOXAPARIN NA (PORCINE) 40 MG/0.4 ML DISP.SYRIN SQ SCH (09:55)
[2022-10-03] MEDS: SERTRALINE HCL 25 MG TABLET (FP) PO SCH (09:55)
[2022-10-03] MEDS: GABAPENTIN 300 MG CAPSULE PO SCH ×2 (09:55→21:50)
[2022-10-03] MEDS: ZINC SULFATE 220 MG CAPSULE (FP) PO SCH (09:56)
[2022-10-03] MEDS: FOLIC ACID 1 MG TABLET (FP) PO SCH (09:56)
[2022-10-03] MEDS: CYANOCOBALAMIN 1,000 MCG TABLET (FP) PO SCH (09:56)
[2022-10-03] MEDS: amLODIPine BESYLATE 5 MG TABLET (FP) PO SCH (09:56)
[2022-10-03] MEDS: ASCORBIC ACID 500 MG TABLET (FP) PO SCH ×2 (09:56→21:49)
[2022-10-03] MEDS: FERROUS SO4 325 MG TABLET (FP) PO SCH (09:56)
[2022-10-03] MEDS: CALCIUM CARBONATE 650 MG TABLET PO SCH ×2 (09:56→21:50)
[2022-10-03] MEDS: VITAMIN A 10,000 UNITS (3000 MCG) CAPSULE PO SCH (09:57)
[2022-10-03] MEDS: CHOLECALCIFEROL (VIT D3) 1,000 UNIT (25 MCG) TABLET PO SCH (09:57)
[2022-10-03] MEDS: traZODone HCL 50 MG TABLET (FP) PO SCH (21:49)
[2022-10-03] MEDS: SENNOSIDES 8.6MG TABLET (FP) PO SCH (21:49)
[2022-10-03] MEDS: ATORVASTATIN CA 10 MG TABLET (FP) PO SCH (21:49)
[2022-10-04] MEDS: PIPERACILLIN/TAZOB 4.5 GM 4.5 GM in DEXTROSE 5%-WATER 100 ML IVPB SCH ×2 (02:27→10:12)
[2022-10-04] MEDS: amLODIPine BESYLATE 5 MG TABLET (FP) PO SCH (10:13)
[2022-10-04] MEDS: ASCORBIC ACID 500 MG TABLET (FP) PO SCH (10:13)
[2022-10-04] MEDS: SERTRALINE HCL 25 MG TABLET (FP) PO SCH (10:13)
[2022-10-04] MEDS: VITAMIN A 10,000 UNITS (3000 MCG) CAPSULE PO SCH (10:13)
[2022-10-04] MEDS: FOLIC ACID 1 MG TABLET (FP) PO SCH (10:13)
[2022-10-04] MEDS: CALCIUM CARBONATE 650 MG TABLET PO SCH (10:13)
[2022-10-04] MEDS: AMINO ACIDS/PROTEIN HYDROLYS 30 ML LIQUID.PKT PO SCH ×2 (10:13→14:06)
[2022-10-04] MEDS: ZINC SULFATE 220 MG CAPSULE (FP) PO SCH (10:13)
[2022-10-04] MEDS: GABAPENTIN 300 MG CAPSULE PO SCH (10:13)
[2022-10-04] MEDS: POLYETHYLENE GLYCOL (HEALTHYLAX) 3350 17 GM PACKET PO SCH (10:13)
[2022-10-04] MEDS: CYANOCOBALAMIN 1,000 MCG TABLET (FP) PO SCH (10:13)
[2022-10-04] MEDS: FERROUS SO4 325 MG TABLET (FP) PO SCH (10:13)
[2022-10-04] MEDS: MULTIVITAMINS (DAILY MVI) TABLET (FP) PO SCH (10:13)
[2022-10-04] MEDS: CHOLECALCIFEROL (VIT D3) 1,000 UNIT (25 MCG) TABLET PO SCH (10:14)
[2022-10-04] MEDS: ENOXAPARIN NA (PORCINE) 40 MG/0.4 ML DISP.SYRIN SQ SCH (10:14)
[2022-10-04 15:24] VITALS: BP 114/60; PULSE 78; RESP 18; TEMP 97.3
== END 2022-10-04 17:21 | disposition home or self-care (01) | DRG 580 ==
LOC: JER 16:34 → JERBED 19:53 → J5S 20:59
PROVIDERS: ADMIT Internal Medicine; ATTEND Internal Medicine
PROC: 0KBT0ZZ Excision of Left Lower Leg Muscle, Open Approach (ICD-10-PCS; 2022-09-28)
PROC: 0QB20ZZ Excision of Right Pelvic Bone, Open Approach (ICD-10-PCS; 2022-09-28)
PROC: 0KBN0ZZ Excision of Right Hip Muscle, Open Approach (ICD-10-PCS; principal; 2022-09-28 12:00)
PROC: 0T25X0Z Change Drainage Device in Kidney, External Approach (ICD-10-PCS; 2022-09-29)
PROC: 02HV33Z Insertion of Infusion Device into Superior Vena Cava, Percutaneous Approach (ICD-10-PCS; 2022-10-04)
PROC: B548ZZA Ultrasonography of Superior Vena Cava, Guidance (ICD-10-PCS; 2022-10-04)
DX: L89.214 Pressure ulcer of right hip, stage 4 (principal); L97.829 Non-pressure chronic ulcer of other part of left lower leg with unspecified severity; M86.651 Other chronic osteomyelitis, right thigh; N39.0 Urinary tract infection, site not specified; T83.512A Infection and inflammatory reaction due to nephrostomy catheter, initial encounter; G35 Multiple sclerosis; I10 Essential (primary) hypertension; M81.0 Age-related osteoporosis without current pathological fracture; D64.9 Anemia, unspecified; I45.10 Unspecified right bundle-branch block; I12.9 Hypertensive chronic kidney disease with stage 1 through stage 4 chronic kidney disease, or unspecified chronic kidney disease; N18.9 Chronic kidney disease, unspecified; L89.151 Pressure ulcer of sacral region, stage 1; E78.5 Hyperlipidemia, unspecified; F32.A Depression, unspecified; Z89.611 Acquired absence of right leg above knee; I73.9 Peripheral vascular disease, unspecified; C61 Malignant neoplasm of prostate; Y83.8 Other surgical procedures as the cause of abnormal reaction of the patient, or of later complication, without mention of misadventure at the time of the procedure; L89.896 Pressure-induced deep tissue damage of other site
CPT/HCPCS: 36415; 36569; 50433; 71045-TC-FY; 77001-TC-FY; 80048; 80053; 81003; 82728; 83550; 83615; 83735; 84100; 84443; 84484; 85025; 85027; 85045; 85610; 85730; 86850; 86900; 86901; 87040; 87070; 87081; 87086; 87186; 87205; 88304-TC; 88307-TC; 88311-TC; 93005; 93010; 94760; 99285-25; A4358; C1751; C1769; C1887; C9803-CS; U0003; U0005